=== PATIENT | male | born 1960 | race Caucasian/White ===

== ENCOUNTER 2018-05-29 18:37 | Inpatient (IN) ==
[2018-05-29] MEDS ORDERED: KETOROLAC 60 MG/2 ML VIAL IM STA (19:18)
[2018-05-29] MEDS ORDERED: ONDANSETRON ODT 4 MG TABLET PO STA (19:18)
[2018-05-29 19:34] LABS: Basophils # 0.1 10*3/uL (0.0-0.2); Basophils % 1.1 % (0.0-0.8); Eosinophils # 0.4 10*3/uL (0.0-0.87); Eosinophils % 5.2 % (0.00-10.9); Hematocrit 31.9 VOL% (42.0-52.0); Hemoglobin 9.8 GM/DL (14.0-18.0); Immature Granulocytes % 0.4 %; Immature Granulocytes Absolute 0.03 #; Lymphocytes # 2.2 10*3/uL (1.4-4.0); Lymphocytes % 26.4 % (21.2-54.2); Mean Corpuscular HGB Conc 30.7 GM/DL (32-36); Mean Corpuscular Hemoglobin 25 PG (27-34); Mean Corpuscular Volume 81.4 FL (87-102); Monocytes # 1.3 10*3/uL (0.11-0.8); Monocytes % 15.3 % (1.7-12.7); Neutrophils # 4.2 10*3/uL (1.4-7.4); Neutrophils % 51.6 % (38.7-73.9); Platelet Count 320 T/CUMM (130-400); Red Blood Count 3.92 MC/CUMM (3.8-5.5); Red Cell Distribution Width 19.1 % (9.3-17.3); White Blood Count 8.2 T/CUMM (4-12)
[2018-05-29] MEDS ORDERED: ONDANSETRON ODT 4 MG TABLET PO ONE (19:39)
[2018-05-29] MEDS ORDERED: KETOROLAC 60 MG/2 ML VIAL IM ONE (19:39)
[2018-05-29 19:55] LABS: Alanine Aminotransferase 42 U/L (16-61); Albumin 3.4 G/DL (3.4-5.0); Alkaline Phosphatase 51 U/L (45-117); Amylase 63 U/L (25-115); Aspartate Amino Transferase 36 U/L (0-37); Bilirubin,Total < 0.39 MG/DL (0.2-1.0); Blood Urea Nitrogen 11 MG/DL (7-18); Calcium 9.2 MG/DL (8.5-10.1); Glucose 87 MG/DL (74-106); Osmolality,Calculated 278.3 MOS/KG (273-304); Potassium 3.7 MMOL/L (3.5-5.1); Sodium 141 MMOL/L (136-145); Total Protein 7.6 G/DL (6.4-8.3)
[2018-05-29 20:20] LABS: Apearance,Urine CLEAR (Clear); Bilirubin,Urine Negative (Negative); Blood, Urine Negative (Negative); Glucose,Urine (UA) Negative (Negative); Ketones,Urine Negative (Negative); Nitrite,Urine Negative (Negative); Protein,Urine Negative; Urine Color Straw (Yellow); Urine Specific Gravity 1.009 (1.001-1.035); Urine Urobilinogen < 2.0 EU/DL (0.2-1.0); WBC,Urine <1 /HPF (0-6)
[2018-05-29] MEDS ORDERED: PANTOPRAZOLE 40 MG VIAL IV ONE ×2 (21:25→22:03)
[2018-05-29 21:28] LABS: PT Patient Result 10.7 SECS
[2018-05-29] MEDS ORDERED: SODIUM CHLORIDE 0.9% 1,000 ML IV PRN (21:34)
[2018-05-29] MEDS ORDERED: PANTOPRAZOLE INJ 80 MG in SODIUM CHLORIDE 0.9% 100 ML IV ONE (22:16)
[2018-05-29] MEDS: MORPHINE 4 MG/1 ML VIAL IV PRN (23:03)
[2018-05-29] MEDS: SODIUM CHLORIDE 0.9% 1,000 ML IV SCH (23:09)
[2018-05-29 23:20] LABS: Hematocrit 32.1 VOL% (42.0-52.0); Hemoglobin 10.2 GM/DL (14.0-18.0)
[2018-05-29] MEDS: chlorproMAZINE 25 MG/1 ML AMP IM SCH (23:59)
[2018-05-30 04:43] LABS: Basophils # 0.1 10*3/uL (0.0-0.2); Basophils % 1.1 % (0.0-0.8); Eosinophils # 0.5 10*3/uL (0.0-0.87); Hematocrit 30.6 VOL% (42.0-52.0); Hemoglobin 9.2 GM/DL (14.0-18.0); Immature Granulocytes % 0.4 %; Immature Granulocytes Absolute 0.03 #; Lymphocytes % 23.7 % (21.2-54.2); Mean Corpuscular HGB Conc 30.1 GM/DL (32-36); Mean Corpuscular Hemoglobin 25 PG (27-34); Mean Corpuscular Volume 82.5 FL (87-102); Mean Platelet Volume 9.3 FL (9.6-12.0); Monocytes % 12.6 % (1.7-12.7); Neutrophils # 4.7 10*3/uL (1.4-7.4); Neutrophils % 56.2 % (38.7-73.9); Platelet Count 304 T/CUMM (130-400); Red Blood Count 3.71 MC/CUMM (3.8-5.5); Red Cell Distribution Width 19.1 % (9.3-17.3); White Blood Count 8.3 T/CUMM (4-12)
[2018-05-30 05:12] LABS: Calcium 8.3 MG/DL (8.5-10.1); Osmolality,Calculated 283.1 MOS/KG (273-304); Potassium 3.6 MMOL/L (3.5-5.1)
[2018-05-30] MEDS: SODIUM CHLORIDE 0.9% 1,000 ML IV SCH ×3 (07:07→19:00)
[2018-05-30] MEDS: PANTOPRAZOLE 40 MG VIAL IV SCH ×2 (08:39→21:36)
[2018-05-30] MEDS: ONDANSETRON 4 MG/2 ML VIAL IV PRN ×2 (08:40→19:55)
[2018-05-30] MEDS: MORPHINE 4 MG/1 ML VIAL IV PRN ×3 (08:44→19:54)
[2018-05-30] MEDS: chlorproMAZINE 25 MG/1 ML AMP IM SCH (08:48)
[2018-05-30] MEDS ORDERED: chlorproMAZINE 25 MG TABLET PO SCH (09:00)
[2018-05-30 09:56] LABS: Hematocrit 30.8 VOL% (42.0-52.0); Hemoglobin 9.5 GM/DL (14.0-18.0)
[2018-05-30] MEDS: chlorproMAZINE 25 MG TABLET PO SCH ×2 (14:18→21:36)
[2018-05-30 15:39] LABS: Hematocrit 31.4 VOL% (42.0-52.0); Hemoglobin 9.3 GM/DL (14.0-18.0)
[2018-05-31] MEDS: SODIUM CHLORIDE 0.9% 1,000 ML IV SCH ×4 (00:30→22:32)
[2018-05-31] MEDS: MORPHINE 4 MG/1 ML VIAL IV PRN ×5 (00:45→21:09)
[2018-05-31 04:45] LABS: Basophils # 0.1 10*3/uL (0.0-0.2); Basophils % 1.3 % (0.0-0.8); Eosinophils # 0.4 10*3/uL (0.0-0.87); Eosinophils % 6.8 % (0.00-10.9); Hematocrit 35.3 VOL% (42.0-52.0); Immature Granulocytes % 0.3 %; Immature Granulocytes Absolute 0.02 #; Lymphocytes # 1.6 10*3/uL (1.4-4.0); Mean Corpuscular HGB Conc 29.5 GM/DL (32-36); Mean Corpuscular Hemoglobin 25 PG (27-34); Mean Corpuscular Volume 83.6 FL (87-102); Mean Platelet Volume 9.3 FL (9.6-12.0); Monocytes # 0.8 10*3/uL (0.11-0.8); Monocytes % 13.1 % (1.7-12.7); Neutrophils # 3.1 10*3/uL (1.4-7.4); Neutrophils % 51.5 % (38.7-73.9); Platelet Count 330 T/CUMM (130-400); Red Blood Count 4.22 MC/CUMM (3.8-5.5); Red Cell Distribution Width 19.5 % (9.3-17.3)
[2018-05-31 05:00] LABS: Hemoglobin 10.6 GM/DL (14.0-18.0)
[2018-05-31 05:24] LABS: Calcium 8.7 MG/DL (8.5-10.1); Osmolality,Calculated 279.1 MOS/KG (273-304); Potassium 3.9 MMOL/L (3.5-5.1)
[2018-05-31] MEDS: chlorproMAZINE 25 MG TABLET PO SCH ×3 (10:16→21:09)
[2018-05-31] MEDS: PANTOPRAZOLE 40 MG VIAL IV SCH ×2 (10:17→21:09)
[2018-05-31] MEDS: FOLIC ACID 1 MG TABLET PO SCH (10:58)
[2018-05-31] MEDS: THIAMINE 100 MG TABLET PO SCH (10:58)
[2018-05-31] MEDS: MULTIVITAMIN (OCUVITE) TABLET PO SCH (10:58)
[2018-06-01] MEDS: MORPHINE 4 MG/1 ML VIAL IV PRN ×5 (01:58→20:44)
[2018-06-01 06:26] LABS: Basophils # 0.1 10*3/uL (0.0-0.2); Basophils % 1.5 % (0.0-0.8); Eosinophils # 0.5 10*3/uL (0.0-0.87); Eosinophils % 6.7 % (0.00-10.9); Hematocrit 30.3 VOL% (42.0-52.0); Hemoglobin 9.5 GM/DL (14.0-18.0); Immature Granulocytes % 0.3 %; Immature Granulocytes Absolute 0.02 #; Lymphocytes # 1.5 10*3/uL (1.4-4.0); Lymphocytes % 22.2 % (21.2-54.2); Mean Corpuscular HGB Conc 31.4 GM/DL (32-36); Mean Corpuscular Hemoglobin 26 PG (27-34); Mean Corpuscular Volume 81.9 FL (87-102); Mean Platelet Volume 8.9 FL (9.6-12.0); Monocytes % 14.3 % (1.7-12.7); Neutrophils # 3.7 10*3/uL (1.4-7.4); Platelet Count 321 T/CUMM (130-400); Red Cell Distribution Width 18.9 % (9.3-17.3); White Blood Count 6.7 T/CUMM (4-12)
[2018-06-01 06:41] LABS: Calcium 8.9 MG/DL (8.5-10.1); Osmolality,Calculated 277.3 MOS/KG (273-304); Potassium 3.9 MMOL/L (3.5-5.1)
[2018-06-01] MEDS: SODIUM CHLORIDE 0.9% 1,000 ML IV SCH ×3 (06:46→23:24)
[2018-06-01] MEDS ORDERED: PROPOFOL 200 MG/20 ML VIAL IV ONE (09:00)
[2018-06-01] MEDS ORDERED: LIDOCAINE 100 MG/5 ML SYRINGE ONE (09:00)
[2018-06-01] MEDS: LACTATED RINGERS 1,000 ML IV SCH (10:43)
[2018-06-01] MEDS: MULTIVITAMIN (OCUVITE) TABLET PO SCH (11:07)
[2018-06-01] MEDS: FOLIC ACID 1 MG TABLET PO SCH (11:07)
[2018-06-01] MEDS: chlorproMAZINE 25 MG TABLET PO SCH (11:07)
[2018-06-01] MEDS: THIAMINE 100 MG TABLET PO SCH (11:08)
[2018-06-01] MEDS: PANTOPRAZOLE 40 MG VIAL IV SCH ×2 (11:19→20:02)
[2018-06-01] MEDS: chlorproMAZINE 25 MG/1 ML AMP IM SCH ×3 (11:23→20:03)
[2018-06-01 13:33] LABS: Cancer Antigen 19-9 4.9 U/ML (0-37); Carcinoembryonic Antigen 1.3 NG/ML (0.0-5.0)
[2018-06-01] MEDS: LORazepam 2 MG/1 ML VIAL IV PRN (13:54)
[2018-06-01] MEDS: ONDANSETRON 4 MG/2 ML VIAL IV PRN (23:22)
[2018-06-02] MEDS: MORPHINE 4 MG/1 ML VIAL IV PRN ×4 (02:34→21:08)
[2018-06-02 05:21] LABS: Basophils # 0.1 10*3/uL (0.0-0.2); Basophils % 0.9 % (0.0-0.8); Eosinophils # 0.3 10*3/uL (0.0-0.87); Eosinophils % 5.1 % (0.00-10.9); Hematocrit 31.4 VOL% (42.0-52.0); Hemoglobin 9.9 GM/DL (14.0-18.0); Immature Granulocytes % 0.3 %; Immature Granulocytes Absolute 0.02 #; Lymphocytes # 1.4 10*3/uL (1.4-4.0); Lymphocytes % 21.3 % (21.2-54.2); Mean Corpuscular HGB Conc 31.5 GM/DL (32-36); Mean Corpuscular Hemoglobin 25 PG (27-34); Mean Corpuscular Volume 80.5 FL (87-102); Mean Platelet Volume 9.1 FL (9.6-12.0); Monocytes % 14.9 % (1.7-12.7); Neutrophils # 3.7 10*3/uL (1.4-7.4); Neutrophils % 57.5 % (38.7-73.9); Platelet Count 326 T/CUMM (130-400); White Blood Count 6.4 T/CUMM (4-12)
[2018-06-02] MEDS: SODIUM CHLORIDE 0.9% 1,000 ML IV SCH ×2 (05:32→16:55)
[2018-06-02 05:35] LABS: Calcium 9.1 MG/DL (8.5-10.1); Osmolality,Calculated 277.3 MOS/KG (273-304); Potassium 3.8 MMOL/L (3.5-5.1)
[2018-06-02] MEDS: PANTOPRAZOLE 40 MG VIAL IV SCH ×2 (09:32→21:08)
[2018-06-02] MEDS: chlorproMAZINE 25 MG/1 ML AMP IM SCH ×3 (09:33→21:09)
[2018-06-02] MEDS: MULTIVITAMIN (OCUVITE) TABLET PO SCH (09:34)
[2018-06-02] MEDS: THIAMINE 100 MG TABLET PO SCH (09:34)
[2018-06-02] MEDS: FOLIC ACID 1 MG TABLET PO SCH (09:34)
[2018-06-02] MEDS: PROMETHAZINE 25 MG/1 ML VIAL IM PRN ×2 (11:58→23:55)
[2018-06-02] MEDS: LACTATED RINGERS 1,000 ML IV SCH (11:58)
[2018-06-02] MEDS: LORazepam 2 MG/1 ML VIAL IV PRN (23:55)
[2018-06-03] MEDS: MORPHINE 4 MG/1 ML VIAL IV PRN ×5 (01:13→21:29)
[2018-06-03] MEDS: SODIUM CHLORIDE 0.9% 1,000 ML IV SCH ×2 (01:21→19:33)
[2018-06-03] MEDS: LACTATED RINGERS 1,000 ML IV SCH (07:03)
[2018-06-03] MEDS: THIAMINE 100 MG TABLET PO SCH (09:04)
[2018-06-03] MEDS: PANTOPRAZOLE 40 MG VIAL IV SCH ×2 (09:04→21:29)
[2018-06-03] MEDS: FOLIC ACID 1 MG TABLET PO SCH (09:04)
[2018-06-03] MEDS: MULTIVITAMIN (OCUVITE) TABLET PO SCH (09:04)
[2018-06-03] MEDS: chlorproMAZINE 25 MG/1 ML AMP IM SCH ×3 (09:05→21:29)
[2018-06-03] MEDS: NICOTINE 21 MG/24 HR PATCH TRANSDERM SCH (10:21)
[2018-06-03] MEDS: PROMETHAZINE 25 MG/1 ML VIAL IM PRN (18:51)
[2018-06-04] MEDS: SODIUM CHLORIDE 0.9% 1,000 ML IV SCH ×3 (00:40→18:43)
[2018-06-04] MEDS: MORPHINE 4 MG/1 ML VIAL IV PRN ×4 (01:25→15:15)
[2018-06-04] MEDS: PANTOPRAZOLE 40 MG VIAL IV SCH ×2 (08:55→20:12)
[2018-06-04] MEDS: FOLIC ACID 1 MG TABLET PO SCH (08:55)
[2018-06-04] MEDS: NICOTINE 21 MG/24 HR PATCH TRANSDERM SCH (08:55)
[2018-06-04] MEDS: THIAMINE 100 MG TABLET PO SCH (08:55)
[2018-06-04] MEDS: MULTIVITAMIN (OCUVITE) TABLET PO SCH (08:55)
[2018-06-04] MEDS: chlorproMAZINE 25 MG/1 ML AMP IM SCH ×3 (08:56→20:15)
[2018-06-04] MEDS: LACTATED RINGERS 1,000 ML IV SCH (15:57)
[2018-06-05] MEDS: LORazepam 2 MG/1 ML VIAL IV PRN (00:09)
[2018-06-05] MEDS: SODIUM CHLORIDE 0.9% 1,000 ML IV SCH (04:07)
[2018-06-05] MEDS: THIAMINE 100 MG TABLET PO SCH (07:57)
[2018-06-05] MEDS: MULTIVITAMIN (OCUVITE) TABLET PO SCH (07:57)
[2018-06-05] MEDS: FOLIC ACID 1 MG TABLET PO SCH (07:58)
[2018-06-05] MEDS: NICOTINE 21 MG/24 HR PATCH TRANSDERM SCH (07:58)
[2018-06-05 08:01] VITALS: BP 110/72
[2018-06-05] MEDS ORDERED: PANTOPRAZOLE 40 MG TABLET PO SCH (09:00)
== END 2018-06-05 09:05 | disposition home or self-care (01) | DRG 381 ==
LOC: N.ED 18:37 → N.EDINP 21:26 → N.5E 22:39
PROVIDERS: ADMIT Internal Medicine; ATTEND Internal Medicine